=== PATIENT | male | born 1970 | race Caucasian/White ===

== ENCOUNTER 2020-02-15 03:21 | Inpatient (IN) | payer SELFPAY ==
[2020-02-15] MEDS ORDERED: ONDANSETRON HCL INJ/PF 4 MG/2 ML SDV IV ONE (03:53)
[2020-02-15] MEDS ORDERED: RINGERS SOLUTION,LACTATED 1,000 ML IV ONE ×2 (03:53→04:41)
--- NOTE | 2020-02-15 03:54 | ER Document Report ---
ED Blood Sugar Problem - General Chief Complaint: High Blood Sugar Stated Complaint: BLOOD SUGAR ISSUE Time Seen by Provider: 02/15/20 03:48 Notes: Patient is a 49-year-old male with a history of insulin-dependent diabetes that comes the emergency department for chief complaint of vomiting for the past 3 days. He comes by EMS, he states his girlfriend called EMS, EMS reported his blood sugar was reading "HI". Patient denies fevers, specific abdominal pain, chest pain, alcohol, recreational drugs. He states he is taking insulin that he is purchasing from [id number] and he does not have a primary care provider. He denies any other complaints. Only other reported medical history is hernia repair and remote history of pneumothorax. - Related Data Allergies/Adverse Reactions: No Known Allergies Allergy (Unverified 07/03/11 10:58) Past Medical History - General Information source: Patient - Social History Smoking Status: Current Every Day Smoker Frequency of alcohol use: Occasional Drug Abuse: Marijuana Lives with: Alone Family History: Reviewed & Not Pertinent Pulmonary Medical History: Denies: Hx Tuberculosis Endocrine Medical History: Reports: Hx Diabetes Mellitus Type 1 Past Surgical History: Reports: Hx Herniorrhaphy. Denies: Hx Pacemaker - Immunizations Immunizations up to date: Yes Hx Diphtheria, Pertussis, Tetanus Vaccination: Yes Review of Systems - Review of Systems Constitutional: See HPI EENT: No symptoms reported Cardiovascular: No symptoms reported Respiratory: No symptoms reported Gastrointestinal: See HPI Genitourinary: No symptoms reported Male Genitourinary: No symptoms reported Musculoskeletal: No symptoms reported Skin: No symptoms reported Hematologic/Lymphatic: No symptoms reported Neurological/Psychological: No symptoms reported Physical Exam - Vital signs Vitals: Resp BP Pulse Ox 18 156/97 H 97 02/15/20 03:23 02/15/20 03:23 02/15/20 03:23 - Notes Notes: GENERAL: Patient is alert and cooperative but he is ill-appearing HEAD: Normocephalic, atraumatic. EYES: Pupils equal, round, and reactive to light. Extraocular movements intact. ENT: Oral mucosa parched, tongue midline. Oropharynx unremarkable. Airway patent. NECK: Full range of motion. Supple. Trachea midline. No lymphadenopathy. LUNGS: Clear to auscultation bilaterally, no wheezes, rales, or rhonchi. No respiratory distress. Non-tender chest wall. Borderline tachypnea. HEART: Regular rate and rhythm. No murmur ABDOMEN: Soft, non-tender. Non-distended. EXTREMITIES: Moves all 4 extremities spontaneously. No edema, normal radial and dorsalis pedis pulses bilaterally. No cyanosis. BACK: no cervical, thoracic, lumbar midline tenderness. No saddle anesthesia, normal distal neurovascular exam. Moves all extremities in full range of motion. NEUROLOGICAL: Alert and oriented x3. Normal speech. Cranial nerves II through XII grossly intact. Strength 5/5 in all extremities. PSYCH: Slightly anxious SKIN: Pale Course - Re-evaluation Re-evalutation: Patient is ill-appearing on exam, has slight tachypnea, presentation is very suspicious for DKA. Patient will be given additional lactated Ringer's, work-up pending, placed on monitor. CBC unremarkable. Chemistry shows bicarbonate of 8, potassium of 5.9, glucose of 701, anion gap is elevated. pH on venous blood gas is 7.15. EKG shows slightly peaked T waves but QTC is unremarkable. Urinalysis shows ketones and dehydration. Work-up consistent with DKA, patient will be started on insulin drip, given additional lactated Ringer's. I discussed the patient and girlfriend at bedside. Patient has elevated LFTs but unremarkable lipase and bilirubin. He is not tender in the right upper quadrant on my exam. He denies recent travel, history of hepatitis, or known history of elevated LFTs. I discussed options and decision was made to perform hepatitis panel. Discussed admission, patient and girlfriend state agreement with plan. Discussed with Dr. Esteban. Discussed with Earnest Flannery PA-C lithography contact worker for the ICU. He did come to the emergency department, discussed patient, he has protocol with him, he feels patient does not need ICU protocol for admission, recommends hospitalist admission. Discussed with Dr. Garvin, hospitalist, patient accepted to [facility] full admission. - Vital Signs Vital signs: Temp Pulse Resp BP Pulse Ox 97.2 F 94 15 161/92 H 100 02/15/20 04:30 02/15/20 04:30 02/15/20 05:02 02/15/20 05:31 02/15/20 05:31 - Laboratory Result Diagrams: 02/15/20 03:33 02/15/20 03:33 Laboratory results interpreted by me: 02/15/20 02/15/20 02/15/20 03:33 03:33 03:33 RDW 15.7 H VBG pH 7.15 L* VBG pCO2 24.4 L VBG HCO3 8.3 L Sodium 131.5 L Potassium 5.9 H Chloride 92 L Carbon Dioxide 8 L* Anion Gap 32 H BUN 26 H Glucose 701 H* AST 513 H ALT 445 H Alkaline Phosphatase 563 H Urine Glucose (UA) Urine Ketones 02/15/20 03:33 RDW VBG pH VBG pCO2 VBG HCO3 Sodium Potassium Chloride Carbon Dioxide Anion Gap BUN Glucose AST ALT Alkaline Phosphatase Urine Glucose (UA) >=500 H Urine Ketones 80 H - EKG Interpretation by Me Additional EKG results interpreted by me: EKG shows sinus rhythm at a rate of 88, normal axis, no T wave inversions or ST segment changes in consecutive leads. QTc 431 Critical Care Note - Critical Care Note Total time excluding time spent on procedures (mins): 35 - DKA, hyperkalemia Comments: Please allow 35 minutes of critical care time for evaluation and management of this critically ill patient. Patient with significant diabetic ketoacidosis requiring lactated Ringer's, insulin drip, and multiple re-evaluations. Time spent discussing with patient and family, time spent consulting and admitting to the hospital. Discharge - Discharge Clinical Impression: Hyperkalemia Diabetic ketoacidosis Qualifiers: Diabetes mellitus type: type 1 Diabetes mellitus complication detail: without coma Qualified Code(s): E10.10 - Type 1 diabetes mellitus with ketoacidosis without coma Vomiting Qualifiers: Vomiting type: unspecified Vomiting Intractability: non-intractable Nausea presence: with nausea Qualified Code(s): R11.2 - Nausea with vomiting, unspecified Condition: Stable Disposition: ADMITTED INPATIENT Admitting Provider: Virgie (Hospitalist) Unit Admitted: [facility]
[2020-02-15 04:04] LABS: APPEARANCE,URINE CLEAR; BILIRUBIN,URINE NEGATIVE (NEGATIVE); COLOR,URINE STRAW; GLUCOSE, URINE >=500 mg/dL (NEGATIVE); KETONES,URINE 80 mg/dL (NEGATIVE); LEUKOCYTE ESTERASE,URINE NEGATIVE (NEGATIVE); NITRITE,URINE NEGATIVE (NEGATIVE); PROTEIN,URINE NEGATIVE (NEGATIVE); URINE SPECIFIC GRAVITY 1.024; UROBILINOGEN,URINE NEGATIVE mg/dL (<2.0)
[2020-02-15 04:07] LABS: VENOUS BLOOD BASE EXCESS -18.6 mmol/L; VENOUS BLOOD HCO3 8.3 mmol/L (20-32); VENOUS BLOOD PCO2 24.4 mmHg (35-63)
[2020-02-15 04:09] LABS: VENOUS BLOOD PH 7.15 (7.30-7.42)
[2020-02-15 04:12] LABS: HEMATOCRIT 46.3 % (37.9-51.0); MEAN CORPUSCULAR HEMOGLOBIN 31.2 pg (27.0-33.4); MEAN CORPUSCULAR HGB CONC 32.3 g/dL (32.0-36.0); MEAN CORPUSCULAR VOLUME 97 fl (80-97); PLATELET COUNT 428 10^3/uL (150-450); RED CELL DISTRIBUTION WIDTH 15.7 % (11.5-14.0); WHITE BLOOD COUNT 7.1 10^3/uL (4.0-10.5)
[2020-02-15 04:27] LABS: ALBUMIN 4.1 g/dL (3.5-5.0); ALKALINE PHOSPHATASE 563 U/L (38-126); ASPARTATE AMINO TRANSFERASE 513 U/L (17-59); BILIRUBIN,DIRECT 0.4 mg/dL (0.0-0.4); BILIRUBIN,TOTAL 0.7 mg/dL (0.2-1.3); BLOOD UREA NITROGEN 26 mg/dL (7-20); CALCIUM 9.6 mg/dL (8.4-10.2); CHLORIDE 92 mmol/L (98-107); POTASSIUM 5.9 mmol/L (3.6-5.0); TOTAL PROTEIN 6.7 g/dL (6.3-8.2)
[2020-02-15 04:34] LABS: ANION GAP 32 (5-19)
[2020-02-15 04:35] LABS: CARBON DIOXIDE 8 mmol/L (22-30); GLUCOSE 701 mg/dL (75-110)
[2020-02-15] MEDS ORDERED: INSULIN REG, HUMAN 100 UNIT/ML 3 ML VIAL (PYX) IV ONE (04:36)
[2020-02-15] MEDS ORDERED: LORAZEPAM INJ 2 MG/1 ML VIAL IV ONE (04:41)
[2020-02-15 04:49] LABS: ABSOLUTE LYMPHOCYTES# (MANUAL) 1.7 10^3/uL (0.5-4.7); ABSOLUTE MONOCYTES # (MANUAL) 0.4 10^3/uL (0.1-1.4); ANISOCYTOSIS 1+; BASOPHILS % (MANUAL) 0 % (0-2); EOSINOPHILS % (MANUAL) 0 % (0-6); LYMPHOCYTES % (MANUAL) 24 % (13-45); MONOCYTES % (MANUAL) 5 % (3-13); SEGMENTED NEUTROPHILS % (MAN) 71 % (42-78); TOTAL CELLS COUNTED 100
[2020-02-15 04:50] LABS: PLATELET COMMENT ADEQUATE
[2020-02-15 04:51] LABS: BURR CELLS SLIGHT; TARGET CELLS SLIGHT
[2020-02-15 04:52] LABS: SCHISTOCYTES SLIGHT
[2020-02-15] MEDS ORDERED: RINGERS SOLUTION,LACTATED 1,000 ML IV PRN ×4 (05:10→11:09)
[2020-02-15] MEDS ORDERED: MAGNESIUM HYDROXIDE SUSP 30 ML UDCUP PO PRN (06:23)
[2020-02-15] MEDS ORDERED: MAG HYDROX/AL HYDROX/SIMETH SUSP 30 ML UDCUP PO PRN (06:23)
[2020-02-15] MEDS ORDERED: ONDANSETRON HCL INJ/PF 4 MG/2 ML SDV IV PRN (06:23)
[2020-02-15] MEDS ORDERED: LEVALBUTEROL HCL NEB 0.63 MG/3 ML AMPUL NEB PRN (06:23)
[2020-02-15] MEDS ORDERED: GLUCAGON,HUMAN RECOMB 1 MG INJ IM PRN ×2 (06:28→22:00)
[2020-02-15] MEDS ORDERED: DEXTROSE 50%-WATER 25 GM/50 ML DISP.SYRIN IV PRN ×2 (06:28)
[2020-02-15] MEDS ORDERED: NORMAL SALINE 100 ML with INSULIN REGULAR, HUMAN 100 UNIT IV PRN ×2 (06:28)
[2020-02-15] MEDS ORDERED: DEXTROSE 40% GEL 15 GM TUBE PO PRN ×3 (06:28→22:00)
[2020-02-15] MEDS ORDERED: ACETAMINOPHEN 650 MG SUPP.RECT PR PRN (06:29)
[2020-02-15] MEDS ORDERED: ACETAMINOPHEN 325 MG TABLET PO PRN (06:29)
[2020-02-15] MEDS ORDERED: DEXTROSE 5%-WATER 1000 ML 1,000 ML with SODIUM BICARBONATE 150 MEQ IV PRN ×2 (06:29)
[2020-02-15] MEDS ORDERED: MORPHINE SULFATE 10 MG/ML INJ IV PRN (06:29)
[2020-02-15] MEDS ORDERED: GUAIFENESIN SYRP 200 MG/10 ML UDC PO PRN (06:29)
[2020-02-15] MEDS ORDERED: HYDRALAZINE HCL INJ/PF 20 MG/1 ML SDV IV PRN (06:29)
[2020-02-15] MEDS ORDERED: LORAZEPAM INJ 2 MG/1 ML VIAL IV PRN (06:29)
[2020-02-15] MEDS ORDERED: SODIUM BICARBONATE 8.4% INJ 50 MEQ/50 ML DISP.SYRIN ONE ×2 (07:23→07:24)
--- NOTE | 2020-02-15 08:35 | EKG REPORT ---
SEVERITY:- NORMAL ECG - SINUS RHYTHM : Confirmed by: Jaswinder Burks MD 15-Feb-2020 08:35:14
[2020-02-15 09:56] LABS: BLOOD UREA NITROGEN 25 mg/dL (7-20); CALCIUM 8.9 mg/dL (8.4-10.2); CHLORIDE 101 mmol/L (98-107)
[2020-02-15] MEDS: DOCUSATE SODIUM 100 MG CAPSULE PO SCH ×2 (10:03→17:00)
[2020-02-15 10:27] LABS: ANION GAP 27 (5-19)
[2020-02-15 10:28] LABS: GLUCOSE 471 mg/dL (75-110)
[2020-02-15 10:29] LABS: CARBON DIOXIDE 8 mmol/L (22-30)
[2020-02-15] MEDS: FAMOTIDINE INJ/PF 20 MG/2 ML SDV IV SCH ×2 (10:33→22:14)
[2020-02-15] MEDS ORDERED: NORMAL SALINE 1000 ML 1,000 ML IV PRN (10:58)
[2020-02-15] MEDS ORDERED: DEXTROSE 5%-NORMAL SALINE 1,000 ML IV PRN ×2 (12:17→18:24)
[2020-02-15 12:24] LABS: VENOUS BLOOD BASE EXCESS -6.4 mmol/L; VENOUS BLOOD HCO3 19.4 mmol/L (20-32); VENOUS BLOOD PCO2 39.5 mmHg (35-63); VENOUS BLOOD PH 7.31 (7.30-7.42)
[2020-02-15 12:39] LABS: ANION GAP 10 (5-19); BLOOD UREA NITROGEN 22 mg/dL (7-20); CALCIUM 8.2 mg/dL (8.4-10.2); CHLORIDE 104 mmol/L (98-107); GLUCOSE 192 mg/dL (75-110)
[2020-02-15 12:53] LABS: CARBON DIOXIDE 20 mmol/L (22-30)
[2020-02-15] MEDS ORDERED: INSULIN LISPRO 100 UNIT/ML 3 ML VIAL SUBCUT SCH ×2 (13:45→15:45)
[2020-02-15] MEDS ORDERED: POTASSI CL 20 MEQ/50 ML RIDER 20 MEQ/50 ML RTUPB IV SCH (14:30)
--- NOTE | 2020-02-15 15:19 | RADIOLOGY REPORT (SQ) ---
EXAM DESCRIPTION: CT HEAD WITHOUT IMAGES COMPLETED DATE/TIME: 02/15/2020 3:02 pm REASON FOR STUDY: AMS COMPARISON: CT head 04/10/2012. TECHNIQUE: Axial images acquired through the brain without intravenous contrast. Images reviewed wi th bone, brain and subdural windows. Images stored on PACS. All CT scanners at this facility use dose modulation, iterative reconstruction, and/or weight based d osing when appropriate to reduce radiation dose to as low as reasonably achievable (ALARA). [facility]: Dose Right [facility]: CareDose [facility]: Dose Right [facility]: Teradose 4D [facility]: [employer] RADIATION DOSE: CT Rad equipment meets quality standard of care and radiation dose reduction techniq ues were employed. CTDIvol: 53.2 mGy. DLP: 911 mGy-cm. mGy. LIMITATIONS: None. FINDINGS: VENTRICLES: Normal size and contour. CEREBRUM: No mass effect. No hemorrhage. No midline shift. Normal finney/white matter differentiatio n. No evidence for acute territorial infarction. CEREBELLUM: No mass effect. No hemorrhage. No alteration of density. No evidence for acute infarct ion. EXTRAAXIAL SPACES: No fluid collections. ORBITS AND GLOBE: Symmetrical contour of the globes. CALVARIUM: No depressed skull fracture. PARANASAL SINUSES: No air-fluid level. SOFT TISSUES: No hematoma. IMPRESSION: NO ACUTE INTRACRANIAL IMAGING FINDINGS. EVIDENCE OF ACUTE STROKE: NO. COMMENT: Quality ID # [id number]: Final reports with documentation of one or more dose reduction techniques (e.g., Automated exposure control, adjustment of the mA and/or kV according to patient size, use of iterative reconstruction technique) TECHNICAL DOCUMENTATION: JOB ID: [id number] [place]-[employer] 2010 [employer]- All Rights Reserved Reading location - IP/workstation name: [email or web address]
[2020-02-15] MEDS: HEPARIN SOD (PORCINE) 5,000 UNIT/ML 1 ML VIAL SUBCUT SCH ×2 (15:42→22:14)
--- NOTE | 2020-02-15 15:45 | Progress Note ---
Provider Note Provider Note: History of insulin-dependent diabetes mellitus came to the emergency room with a chief complaint of vomiting for 3 days. History derived from the ED physicians notes as he was very drowsy and sleepy when I rounded on him this morning .He states that his girlfriend called EMS EMS reported his blood sugar was reading high. She denies fever abdominal pain chest pain alcohol recreational drugs. He states that he is taking insulin that he purchased from [id number] and does not have a primary care provider. CBC was unremarkable. CMP showed a bicarbonate of 8 potassium of 5.9, glucose of 701, anion gap of 32. VBG showed a pH of 7.15. EKG shows slightly peaked T waves but QTC is unremarkable. UA showed positive ketones. He was started on an insulin drip and given pain LR. He was initially assessed by ICU physician who deemed that he was stable enough to go to the floor for treatment of DKA. Dr. Garvin admitted him. Please refer to his notes for full H&P. Was seen and examined at bedside. Noted to be very sleepy and drowsy. Pupils are 4 mm briskly reactive to light bilateral. He wakes up and opens his eyes and is able to mumble yes or no but goes back to sleep. CT head without contrast was normal. Insulin drip was stopped at around 1 PM. Anion gap closed at 1 PM. IV fluids changed from plain LR to D5 NS at 200 mL/h. Since he is still unable to eat, subcu insulin 6 units every 2 hours was started, Accu-Cheks every 2 hours. May transition to basal bolus insulin once he is able to eat. Potassium 4.0 replaced.
[2020-02-15] MEDS: POTASSI CL 20 MEQ/50 ML RIDER 20 MEQ/50 ML RTUPB IV SCH ×3 (15:52→18:53)
[2020-02-15] MEDS: INSULIN LISPRO 100 UNIT/ML 3 ML VIAL SUBCUT SCH ×5 (15:53→23:00)
[2020-02-15 15:54] LABS: URINE BARBITURATES SCREEN NEGATIVE; URINE BENZODIAZEPINES SCREEN NEGATIVE; URINE COCAINE SCREEN NEGATIVE; URINE METHADONE SCREEN NEGATIVE; URINE PHENCYCLIDINE SCREEN NEGATIVE
[2020-02-15 15:57] LABS: URINE MARIJUANA (THC) SCREEN UNCONFIRMED POSITIVE
[2020-02-15 17:20] LABS: VENOUS BLOOD BASE EXCESS -6.8 mmol/L; VENOUS BLOOD HCO3 19.8 mmol/L (20-32); VENOUS BLOOD PCO2 43.1 mmHg (35-63); VENOUS BLOOD PH 7.28 (7.30-7.42)
[2020-02-15 17:37] LABS: ANION GAP 7 (5-19); BLOOD UREA NITROGEN 19 mg/dL (7-20); CALCIUM 7.7 mg/dL (8.4-10.2); CARBON DIOXIDE 21 mmol/L (22-30); CHLORIDE 105 mmol/L (98-107); GLUCOSE 273 mg/dL (75-110); POTASSIUM 4.2 mmol/L (3.6-5.0)
[2020-02-15] MEDS ORDERED: INSULIN GLARGINE,HUM.REC.ANLOG 1,000 UNIT/10 ML VIAL (PYX) SUBCUT PRN (18:50)
[2020-02-15] MEDS ORDERED: INSULIN GLARGINE,HUM.REC.ANLOG 1,000 UNIT/10 ML VIAL SUBCUT ONE (19:00)
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
[2020-02-15 21:18] LABS: BLOOD UREA NITROGEN 19 mg/dL (7-20); CALCIUM 7.9 mg/dL (8.4-10.2); GLUCOSE 176 mg/dL (75-110); POTASSIUM 4.7 mmol/L (3.6-5.0)
[2020-02-15 21:23] LABS: ANION GAP 6 (5-19); CARBON DIOXIDE 23 mmol/L (22-30); CHLORIDE 106 mmol/L (98-107)
[2020-02-15] MEDS ORDERED: DEXTROSE 40% GEL 15 GM TUBE X 2 PO PRN (22:00)
[2020-02-15] MEDS ORDERED: DEXTROSE 50%-WATER SYRINGE 12.5 GM/25 ML DOSE IV PRN (22:00)
[2020-02-15] MEDS ORDERED: DEXTROSE 50%-WATER SYRINGE 25 GM/50 ML DOSE IV PRN (22:00)
[2020-02-16 00:48] LABS: VENOUS BLOOD BASE EXCESS -3.4 mmol/L; VENOUS BLOOD PCO2 35.9 mmHg (35-63); VENOUS BLOOD PH 7.39 (7.30-7.42)
[2020-02-16] MEDS ORDERED: INSULIN GLARGINE,HUM.REC.ANLOG 1,000 UNIT/10 ML VIAL SUBCUT SCH ×2 (06:00→22:00)
[2020-02-16] MEDS: HEPARIN SOD (PORCINE) 5,000 UNIT/ML 1 ML VIAL SUBCUT SCH ×3 (06:10→21:52)
[2020-02-16] MEDS ORDERED: INSULIN GLARGINE,HUM.REC.ANLOG 1,000 UNIT/10 ML VIAL (PYX) SUBCUT ONE (06:13)
[2020-02-16 07:13] LABS: HEMATOCRIT 37.7 % (37.9-51.0); MEAN CORPUSCULAR HGB CONC 34.4 g/dL (32.0-36.0); PLATELET COUNT 364 10^3/uL (150-450); RED BLOOD COUNT 4.19 10^6/uL (4.35-5.55); WHITE BLOOD COUNT 12.2 10^3/uL (4.0-10.5)
[2020-02-16 07:17] LABS: MEAN CORPUSCULAR VOLUME 90 fl (80-97)
[2020-02-16 07:19] LABS: VENOUS BLOOD BASE EXCESS -1.5 mmol/L; VENOUS BLOOD HCO3 24.6 mmol/L (20-32); VENOUS BLOOD PCO2 46.7 mmHg (35-63); VENOUS BLOOD PH 7.34 (7.30-7.42)
[2020-02-16 07:34] LABS: ALBUMIN 2.6 g/dL (3.5-5.0); ALKALINE PHOSPHATASE 266 U/L (38-126); AMYLASE 33 U/L (30-110); ASPARTATE AMINO TRANSFERASE 195 U/L (17-59); BILIRUBIN,DIRECT 0.3 mg/dL (0.0-0.4); BILIRUBIN,TOTAL 0.5 mg/dL (0.2-1.3); CHOLESTEROL 163.52 mg/dL (0-200); TRIGLYCERIDES 287 mg/dL (<150)
[2020-02-16 07:36] LABS: ANION GAP 6 (5-19); BLOOD UREA NITROGEN 18 mg/dL (7-20); CALCIUM 8.5 mg/dL (8.4-10.2); CARBON DIOXIDE 23 mmol/L (22-30); CHLORIDE 106 mmol/L (98-107); GLUCOSE 89 mg/dL (75-110); POTASSIUM 4.1 mmol/L (3.6-5.0)
[2020-02-16 07:45] LABS: DIRECT LDL 89 mg/dL (<100)
[2020-02-16 07:57] LABS: VLDL CHOLESTEROL 57.4 mg/dL (10-31)
[2020-02-16] MEDS: INSULIN LISPRO 100 UNIT/ML 3 ML VIAL SUBCUT SCH ×6 (08:34→21:38)
[2020-02-16] MEDS: DOCUSATE SODIUM 100 MG CAPSULE PO SCH ×2 (09:33→17:00)
[2020-02-16] MEDS: FAMOTIDINE INJ/PF 20 MG/2 ML SDV IV SCH ×2 (09:35→21:52)
--- NOTE | 2020-02-16 16:32 | PDOC PROGRESS REPORT ---
Subjective Progress Note for:: 02/16/20 Subjective:: History of insulin-dependent diabetes mellitus came to the emergency room with a chief complaint of vomiting for 3 days. History derived from the ED physicians notes as he was very drowsy and sleepy when I rounded on him this morning .He states that his girlfriend called EMS EMS reported his blood sugar was reading high. She denies fever abdominal pain chest pain alcohol recreational drugs. He states that he is taking insulin that he purchased from [employer] [id number] and does not have a primary care provider. CBC was unremarkable. CMP showed a bicarbonate of 8 potassium of 5.9, glucose of 701, anion gap of 32. VBG showed a pH of 7.15. EKG shows slightly peaked T waves but QTC is unremarkable. UA showed positive ketones. He was started on an insulin drip and given pain LR. He was initially assessed by ICU physician who deemed that he was stable enough to go to the floor for treatment of DKA. Dr. Garvin admitted him. Please refer to his notes for full H&P. Was seen and examined at bedside. Noted to be very sleepy and drowsy. Pupils are 4 mm briskly reactive to light bilateral. He wakes up and opens his eyes and is able to mumble yes or no but goes back to sleep. CT head without contrast was normal. Insulin drip was stopped at around 1 PM. Anion gap closed at 1 PM. IV fluids changed from plain LR to D5 NS at 200 mL/h. Since he is still unable to eat, subcu insulin 6 units every 2 hours was started, Accu-Cheks every 2 hours. May transition to basal bolus insulin once he is able to eat. Potassium 4.0 replaced. D2 hospital stay 02/16/2020. He was seen and examined at bedside. He is much more alert and awake today, able to eat. He denies any abdominal pain, nausea/vomiting. He told me that he has not seen a doctor for atleast a year. He uses 70/30 at home 20 u am, 10 u at night. His usual BG pre breakfast is 300- 400. DKA has resolved and he was transitioned to basal bolus based on his Total insulin dose yesterday. Reason For Visit: DIABETIC KETOACIDOSIS TYPE I WITHOUT COMA Physical Exam Vital Signs: Temp Pulse Resp BP Pulse Ox 97.7 F 74 16 108/66 100 09/07/20 11:56 02/16/20 11:56 02/16/20 11:56 02/16/20 11:56 02/16/20 11:56 Intake & Output 02/15/20 02/16/20 02/17/20 06:59 06:59 06:59 Intake Total 1999 5176 1780 Output Total 1000 600 Balance 1999 4176 1180 Weight 61.9 kg 65.4 kg General appearance: PRESENT: no acute distress, cooperative Head exam: PRESENT: atraumatic, normocephalic Eye exam: PRESENT: EOMI, PERRLA Mouth exam: PRESENT: moist Neck exam: PRESENT: full ROM Respiratory exam: PRESENT: clear to auscultation daniel, symmetrical, unlabored. ABSENT: rales Cardiovascular exam: PRESENT: RRR, +S1, +S2 Pulses: PRESENT: +2 pedal pulses bilateral GI/Abdominal exam: PRESENT: normal bowel sounds, soft. ABSENT: rebound, tenderness Musculoskeletal exam: PRESENT: full ROM Neurological exam: PRESENT: alert, awake, oriented to person, oriented to place, oriented to time, oriented to situation Psychiatric exam: PRESENT: normal mood Skin exam: PRESENT: normal color Results Laboratory Results: 02/16/20 06:40 02/16/20 06:40 02/15/20 02/15/20 02/15/20 17:02 17:02 20:40 WBC RBC Hgb Hct MCV MCH MCHC RDW Plt Count VBG pH 7.28 L VBG pCO2 43.1 VBG HCO3 19.8 L VBG Base Excess -6.8 Sodium 132.7 L 134.9 L Potassium 4.2 4.7 Chloride 105 106 Carbon Dioxide 21 L 23 Anion Gap 7 6 BUN 19 19 Creatinine 0.57 0.53 Est GFR ( Amer) > 60 > 60 Glucose 273 H 176 H Calcium 7.7 L 7.9 L Magnesium Total Bilirubin AST Alkaline Phosphatase Total Protein Albumin Triglycerides Cholesterol LDL Cholesterol Direct VLDL Cholesterol HDL Cholesterol Amylase Lipase TSH 02/16/20 02/16/20 02/16/20 00:40 06:40 06:40 WBC 12.2 H RBC 4.19 L Hgb 13.0 L Hct 37.7 L MCV 90 D MCH 31.0 MCHC 34.4 RDW 15.0 H Plt Count 364 VBG pH 7.39 VBG pCO2 35.9 VBG HCO3 21.0 VBG Base Excess -3.4 Sodium Potassium Chloride Carbon Dioxide Anion Gap BUN Creatinine Est GFR ( Amer) Glucose Calcium Magnesium 2.1 Total Bilirubin 0.5 AST 195 H Alkaline Phosphatase 266 H Total Protein 5.0 L Albumin 2.6 L Triglycerides 287 H Cholesterol 163.52 LDL Cholesterol Direct 89 VLDL Cholesterol 57.4 H HDL Cholesterol 51 Amylase 33 Lipase 86.8 TSH 02/16/20 02/16/20 02/16/20 06:40 06:40 06:40 WBC RBC Hgb Hct MCV MCH MCHC RDW Plt Count VBG pH 7.34 VBG pCO2 46.7 VBG HCO3 24.6 VBG Base Excess -1.5 Sodium 134.6 L Potassium 4.1 Chloride 106 Carbon Dioxide 23 Anion Gap 6 BUN 18 Creatinine 0.58 Est GFR ( Amer) > 60 Glucose 89 Calcium 8.5 Magnesium Total Bilirubin AST Alkaline Phosphatase Total Protein Albumin Triglycerides Cholesterol LDL Cholesterol Direct VLDL Cholesterol HDL Cholesterol Amylase Lipase TSH 2.59 Impressions: Head CT 02/15/20 00:00 IMPRESSION: NO ACUTE INTRACRANIAL IMAGING FINDINGS. EVIDENCE OF ACUTE STROKE: NO. Assessment and Plan - Diagnosis (1) Diabetic ketoacidosis Qualifiers: Diabetes mellitus type: type 1 Diabetes mellitus complication detail: without coma Qualified Code(s): E10.10 - Type 1 diabetes mellitus with ketoacidosis without coma Is this a current diagnosis for this admission?: Yes Plan: -resolved. AG closed - transitioned to basal bolus - K 4.7 - adequate hydration. Able to eat - Accucheck ACHS - hypoglycemia protocol (2) Diabetes mellitus Qualifiers: Diabetes mellitus type: type 2 Diabetes mellitus oil heaterman insulin use: with oil heaterman use Diabetes mellitus complication status: with ketoacidosis Diabetes mellitus complication detail: without coma Qualified Code(s): E11.10 - Type 2 diabetes mellitus with ketoacidosis without coma; Z79.4 - care home (current) use of insulin Is this a current diagnosis for this admission?: Yes Plan: - On insulin 70/30 at home 30 u am, 10 u pm - per patient BG at home prebreakfast usually 300-400 - has not seen a doctor in 1 year - awaiting A1C - on basal bolus insulin - unsure if he ever had an eye exam to screen for DM retinopathy - needs a PCP (3) Hyperkalemia Is this a current diagnosis for this admission?: Yes Plan: - RESOLVED. - likely due to DKA K 5.9>4.7 - mild peaking of T waves on admission - received bicarb drip for a few hours (4) Increased anion gap metabolic acidosis Is this a current diagnosis for this admission?: Yes Plan: - RESOLVED - AG 32>27>10>6 - 2/2 DKA - Plan Summary Summary: Patient was admitted due to DKA which has since resolved. He is currently on a basal bolus insulin regimen which was started today. If blood glucose control is acceptable by tomorrow he can go home on basal bolus regimen or an increase of his insulin 70/30. Needs to be set up with a primary care physician to follow his diabetes management - Time Time Spent with patient: 25-34 minutes Anticipated Discharge Disposition: Home, Self Care Anticipated Discharge Timeframe: within 48 hours
[2020-02-17] MEDS: HEPARIN SOD (PORCINE) 5,000 UNIT/ML 1 ML VIAL SUBCUT SCH ×3 (06:18→21:48)
[2020-02-17] MEDS: INSULIN LISPRO 100 UNIT/ML 3 ML VIAL SUBCUT SCH ×7 (07:46→21:45)
[2020-02-17] MEDS: DOCUSATE SODIUM 100 MG CAPSULE PO SCH ×2 (09:07→17:16)
[2020-02-17] MEDS: ASPIRIN 81 MG TABLET, CHEWABLE PO SCH (09:08)
[2020-02-17] MEDS: LISINOPRIL 10 MG TABLET PO SCH (09:08)
[2020-02-17 10:36] LABS: HEPATITS B SURFACE ANTIGEN Negative (Negative)
[2020-02-17 10:57] LABS: HEPATITIS C VIRUS ANTIBODY <0.1 s/co ratio (0.0-0.9)
[2020-02-17 11:32] LABS: ABSOLUTE BASOPHILS # (AUTO) 0.1 10^3/uL (0.0-0.2); ABSOLUTE LYMPHOCYTES (AUTO) 1.6 10^3/uL (0.5-4.7); ABSOLUTE MONOCYTES (AUTO) 0.4 10^3/uL (0.1-1.4); ABSOLUTE NEUT (AUTO) 3.9 10^3/uL (1.7-8.2); BASOPHILS % (AUTO) 1.1 % (0-2); EOSINOPHILS % (AUTO) 0.5 % (0-6); HEMATOCRIT 33.3 % (37.9-51.0); HEMOGLOBIN 11.8 g/dL (13.5-17.0); MEAN CORPUSCULAR HEMOGLOBIN 31.5 pg (27.0-33.4); MEAN CORPUSCULAR HGB CONC 35.4 g/dL (32.0-36.0); MEAN CORPUSCULAR VOLUME 89 fl (80-97); MONOCYTES % (AUTO) 7.2 % (3-13); PLATELET COUNT 298 10^3/uL (150-450); RED BLOOD COUNT 3.74 10^6/uL (4.35-5.55); RED CELL DISTRIBUTION WIDTH 15.1 % (11.5-14.0); SEGMENTED NEUTROPHILS % (AUTO) 64.2 % (42-78); TOTAL CELLS COUNTED % (AUTO) 100 %
[2020-02-17 11:50] LABS: ALBUMIN 2.5 g/dL (3.5-5.0); ALKALINE PHOSPHATASE 226 U/L (38-126); ANION GAP 8 (5-19); ASPARTATE AMINO TRANSFERASE 196 U/L (17-59); BILIRUBIN,DIRECT 0.3 mg/dL (0.0-0.4); BILIRUBIN,TOTAL 0.4 mg/dL (0.2-1.3); BLOOD UREA NITROGEN 16 mg/dL (7-20); CARBON DIOXIDE 23 mmol/L (22-30); CHLORIDE 98 mmol/L (98-107); GLUCOSE 261 mg/dL (75-110); POTASSIUM 4.5 mmol/L (3.6-5.0); TOTAL PROTEIN 4.9 g/dL (6.3-8.2)
--- NOTE | 2020-02-17 14:12 | PDOC PROGRESS REPORT ---
Subjective Progress Note for:: 02/17/20 Subjective:: 49 year old male who presented to the emergency room via EMS with a 3-day history of hyperglycemia. He admits nausea and vomiting for the last 3 days with persistent hyperglycemia that he has been unable to control with his insulin. He acknowledges a history of type 1 diabetes mellitus and admits numerous prior similar episodes with DKA. He denies other associated or accompanying signs and symptoms. He has not identified any additional factors to aggravate or ameliorate his hyperglycemia. In the emergency room he was found to have a blood sugar greater than 700 a pH of 7.15 and anion gap of 32 and a bicarbonate of 8. He was subsequently admitted to the hospital for further evaluation and treatment on IMCU. 02/16/2020. He was seen and examined at bedside. He is much more alert and awake today, able to eat. He denies any abdominal pain, nausea/vomiting. He told me that he has not seen a doctor for atleast a year. He uses 70/30 at home 20 u am, 10 u at night. His usual BG pre breakfast is 300-400. DKA has resolved and he was transitioned to basal bolus based on his Total insulin dose yesterday. 02/17/2020-patient is comfortably in the bed communicating well expressing desire to go home today. This morning blood sugar is 81. Plan is to adjust his insulin today and plan is to discharge him tomorrow. Patient agreed with the plan. Reason For Visit: DIABETIC KETOACIDOSIS TYPE I WITHOUT COMA Physical Exam Vital Signs: Temp Pulse Resp BP Pulse Ox 97.2 F 89 16 100/60 98 02/17/20 11:27 02/17/20 14:00 02/17/20 11:27 02/17/20 11:27 02/17/20 11:27 Intake & Output 02/16/20 02/17/20 02/18/20 06:59 06:59 06:59 Intake Total 5176 2507 Output Total 1000 1270 Balance 4176 1237 Weight 65.4 kg 67 kg 67 kg General appearance: PRESENT: no acute distress, well-developed Head exam: PRESENT: atraumatic Eye exam: PRESENT: PERRLA Mouth exam: PRESENT: moist, tongue midline Teeth exam: PRESENT: poor dentation Neck exam: ABSENT: carotid bruit, JVD, lymphadenopathy, thyromegaly Respiratory exam: PRESENT: decreased breath sounds Cardiovascular exam: PRESENT: RRR. ABSENT: diastolic murmur, rubs, systolic murmur Pulses: PRESENT: normal dorsalis pedis pul Rectal exam: PRESENT: deferred Extremities exam: PRESENT: full ROM. ABSENT: calf tenderness, clubbing, pedal edema Neurological exam: PRESENT: alert, awake, oriented to person, oriented to place, oriented to time, oriented to situation, CN II-XII grossly intact. ABSENT: motor sensory deficit Psychiatric exam: PRESENT: appropriate affect, normal mood. ABSENT: homicidal ideation, suicidal ideation Results Laboratory Results: 02/17/20 11:18 02/17/20 11:18 02/17/20 02/17/20 11:18 11:18 WBC 6.0 RBC 3.74 L Hgb 11.8 L Hct 33.3 L MCV 89 MCH 31.5 MCHC 35.4 RDW 15.1 H Plt Count 298 Seg Neutrophils % 64.2 Sodium 129.4 L Potassium 4.5 Chloride 98 Carbon Dioxide 23 Anion Gap 8 BUN 16 Creatinine 0.48 L Est GFR ( Amer) > 60 Glucose 261 H Calcium 8.0 L Magnesium 1.8 Total Bilirubin 0.4 AST 196 H Alkaline Phosphatase 226 H Total Protein 4.9 L Albumin 2.5 L Impressions: Head CT 02/15/20 00:00 IMPRESSION: NO ACUTE INTRACRANIAL IMAGING FINDINGS. EVIDENCE OF ACUTE STROKE: NO. Assessment and Plan - Diagnosis (1) Diabetic ketoacidosis Qualifiers: Diabetes mellitus type: type 1 Diabetes mellitus complication detail: without coma Qualified Code(s): E10.10 - Type 1 diabetes mellitus with ketoacidosis without coma Is this a current diagnosis for this admission?: Yes Plan: -resolved. AG closed - transitioned to basal bolus - K 4.7 - adequate hydration. Able to eat - Accucheck ACHS - hypoglycemia protocol 02/17/2020-this morning blood sugar is 81. Plan is to adjust his insulin requirements. Most likely to discharge him home on insulin with a detailed instructions. Dietary consult was provided during the hospital stay. (2) Diabetes mellitus Qualifiers: Diabetes mellitus type: type 2 Diabetes mellitus residential insulin use: with residential use Diabetes mellitus complication status: with ketoacidosis Diabetes mellitus complication detail: without coma Qualified Code(s): E11.10 - Type 2 diabetes mellitus with ketoacidosis without coma; Z79.4 - rn long term care (current) use of insulin Is this a current diagnosis for this admission?: No Plan: - On insulin 70/30 at home 30 u am, 10 u pm - per patient BG at home prebreakfast usually 300-400 - has not seen a doctor in 1 year - awaiting A1C - on basal bolus insulin - unsure if he ever had an eye exam to screen for DM retinopathy - needs a PCP 02/17/2020-hemoglobin A1c is more than 14. Patient needs to establish with a PCP to close monitor the blood sugars and compliance with medications. Unfortunately does not have any insurance. He goes to [facility] usually to get insulin at low cost on an infrequent basis. Patient will be referred to [facility]. (3) Tobacco use disorder, continuous Is this a current diagnosis for this admission?: No Plan: 02/17/2020-patient is a chronic daily day smoker smoking consult was put for more than 20 minutes. Offered nicotine patches. (4) Hyponatremia Is this a current diagnosis for this admission?: Yes Plan: 02/17/2020-serum sodium is 129.4. Blood sugar is 240. Corrected serum sodium is around 131. Plan is to closely monitor the serum sodium levels. (5) Hyperkalemia Is this a current diagnosis for this admission?: Yes Plan: - RESOLVED. - likely due to DKA K 5.9>4.7 - mild peaking of T waves on admission - received bicarb drip for a few hours 02/17/2020-serum potassium is 4.5 and hyperkalemia is resolved. - Plan Summary Summary: Patient was admitted due to DKA which has since resolved. He is currently on a basal bolus insulin regimen which was started today. If blood glucose control is acceptable by tomorrow he can go home on basal bolus regimen or an increase of his insulin 70/30. Needs to be set up with a primary care physician to follow his diabetes management - Time Anticipated Discharge Disposition: Home, Self Care Anticipated Discharge Timeframe: within 48 hours
[2020-02-17] MEDS: PANTOPRAZOLE SODIUM 40 MG TABLET.DR PO SCH (17:16)
[2020-02-17] MEDS ORDERED: ATORVASTATIN CALCIUM 20 MG TABLET PO SCH (22:00)
[2020-02-17] MEDS ORDERED: INSULIN GLARGINE,HUM.REC.ANLOG 1,000 UNIT/10 ML VIAL SUBCUT SCH (22:00)
[2020-02-18] MEDS: PANTOPRAZOLE SODIUM 40 MG TABLET.DR PO SCH (06:52)
[2020-02-18] MEDS: HEPARIN SOD (PORCINE) 5,000 UNIT/ML 1 ML VIAL SUBCUT SCH (06:52)
[2020-02-18] MEDS: INSULIN LISPRO 100 UNIT/ML 3 ML VIAL SUBCUT SCH ×2 (08:04→12:06)
[2020-02-18] MEDS: DOCUSATE SODIUM 100 MG CAPSULE PO SCH (09:28)
[2020-02-18] MEDS: ASPIRIN 81 MG TABLET, CHEWABLE PO SCH (09:31)
[2020-02-18] MEDS: LISINOPRIL 10 MG TABLET PO SCH (09:31)
[2020-02-18] MEDS ORDERED: INSULIN LISPRO 100 UNIT/ML 3 ML VIAL SUBCUT SCH (11:00)
[2020-02-18 12:04] VITALS: BP 156/97
--- NOTE | 2020-02-18 17:01 | PDOC DISCHARGE SUMMARY ---
Impression - Admit/DC Date/PCP Admission Date/Primary Care Provider: 02/15/20 06:28 Discharge Date: 02/18/20 - Discharge Diagnosis (1) Diabetic ketoacidosis Is this a current diagnosis for this admission?: Yes (2) Diabetes mellitus Is this a current diagnosis for this admission?: No (3) Tobacco use disorder, continuous Is this a current diagnosis for this admission?: No (4) Hyponatremia Is this a current diagnosis for this admission?: Yes (5) Hyperkalemia Is this a current diagnosis for this admission?: Yes - Assessment Summary: (1) Diabetic ketoacidosis Qualifiers: Diabetes mellitus type: type 1 Diabetes mellitus complication detail: without coma Qualified Code(s): E10.10 - Type 1 diabetes mellitus with ke toacidosis without coma Is this a current diagnosis for this admission?: Yes Plan: -resolved. AG closed - transitioned to basal bolus - K 4.7 - adequate hydration. Able to eat - Accucheck ACHS - hypoglycemia protocol 02/17/2020-this morning blood sugar is 81. Plan is to adjust his insulin requirements. Most likely to discharge him home on insulin with a detailed instructions. Dietary consult was provided during the hospital stay. 02/18/2020-this morning blood sugar is around 58. Asymptomatic. Patient was given prescriptions for Lantus insulin sliding scale coverage, aspirin, atorvastatin, lisinopril. (2) Diabetes mellitus Qualifiers: Diabetes mellitus type: type 2 Diabetes mellitus halfway insulin use: with skatesman use Diabetes mellitus complication status: with ketoacidosis Diabetes mellitus complication detail: without coma Qualified Code(s): E11.10 - Type 2 diabetes mellitus with ketoacidosis without coma; Z79.4 - retirement (current) use of insulin Is this a current diagnosis for this admission?: No Plan: - On insulin 70/30 at home 30 u am, 10 u pm - per patient BG at home prebreakfast usually 300-400 - has not seen a doctor in 1 year - awaiting A1C - on basal bolus insulin - unsure if he ever had an eye exam to screen for DM retinopathy - needs a PCP 02/17/2020-hemoglobin A1c is more than 14. Patient needs to establish with a PCP to close monitor the blood sugars and compliance with medications. Unfortunately does not have any insurance. He goes to [facility] usually to get insulin at low cost on an infrequent basis. Patient will be referred to community care clinic. 02/18/2020-hemoglobin A1c is more than 14. Compliance with medication is advised. Prescriptions were given. (3) Tobacco use disorder, continuous Is this a current diagnosis for this admission?: No Plan: 02/17/2020-patient is a chronic daily day smoker smoking consult was put for more than 20 minutes. Offered nicotine patches. (4) Hyponatremia Is this a current diagnosis for this admission?: Yes Plan: 02/17/2020-serum sodium is 129.4. Blood sugar is 240. Corrected serum sodium is around 131. Plan is to closely monitor the serum sodium levels. 02/18/2020-hyponatremia is resolved. (5) Hyperkalemia Is this a current diagnosis for this admission?: Yes Plan: - RESOLVED. - likely due to DKA K 5.9>4.7 - mild peaking of T waves on admission - received bicarb drip for a few hours 02/17/2020-serum potassium is 4.5 and hyperkalemia is resolved. - Plan Summary Summary: Patient was admitted due to DKA which has since resolved. He is currently on a basal bolus insulin regimen which was started today. If blood glucose control is acceptable by tomorrow he can go home on basal bolus regimen or an increase of his insulin 70/30. Needs to be set up with a primary care physician to follow his diabetes management - Time Anticipated Discharge Disposition: Home, Self Care Anticipated Discharge Timeframe: within 48 hours - Additional Information Resuscitation Status: Full Code Discharge Diet: Diabetic Discharge Activity: Activity As Tolerated Referrals: [facility] [Outside] - 02/28/20 11:00 am Prescriptions: Aspirin [Aspirin 81 mg Chewable Tablet] 81 mg PO DAILY 30 Days #30 tab.chew Insulin Lispro [Humalog Insulin (Lispro) 100 unit/mL] 0 - 12 unit SUBCUT ACHS #1 vial Insulin Lispro [Humalog Insulin (Lispro) 100 unit/mL] 10 unit SUBCUT AC 30 Days #1 vial Insulin Glargine,Hum.rec.anlog [Lantus Insulin 100 Unit/1 ml 10 ml] 20 unit SUBCUT QHS 30 Days #2 vial Atorvastatin Calcium [Lipitor 20 mg Tablet] 20 mg PO QHS 30 Days #30 tablet Lisinopril [Prinivil 10 mg Tablet] 10 mg PO DAILY 30 Days #30 tablet Home Medications: Aspirin [Aspirin 81 mg Chewable Tablet] 81 mg PO DAILY 30 Days #30 tab.chew 02/18/20 Atorvastatin Calcium [Lipitor 20 mg Tablet] 20 mg PO QHS 30 Days #30 tablet 02/18/20 Insulin Glargine,Hum.rec.anlog [Lantus Insulin 100 Unit/1 ml 10 ml] 20 unit SUBCUT QHS 30 Days #2 vial 02/18/20 Insulin Lispro [Humalog Insulin (Lispro) 100 unit/mL] 0 - 12 unit SUBCUT ACHS #1 vial 02/18/20 Insulin Lispro [Humalog Insulin (Lispro) 100 unit/mL] 10 unit SUBCUT AC 30 Days #1 vial 02/18/20 Lisinopril [Prinivil 10 mg Tablet] 10 mg PO DAILY 30 Days #30 tablet 02/18/20 History of Present Illiness History of Present Illness: ROMEL NINO is a 49 year old male 49 year old male who presented to the emergency room via EMS with a 3-day history of hyperglycemia. He admits nausea and vomiting for the last 3 days with persistent hyperglycemia that he has been unable to control with his insulin. He acknowledges a history of type 1 diabetes mellitus and admits numerous prior similar episodes with DKA. He denies other associated or accompanying signs and symptoms. He has not identified any additional factors to aggravate or ameliorate his hyperglycemia. In the emergency room he was found to have a blood sugar greater than 700 a pH of 7.15 and anion gap of 32 and a bicarbonate of 8. He was subsequently admitted to the hospital for further evaluation and treatment on IMCU. Hospital Course Hospital Course: 49 year old male who presented to the emergency room via EMS with a 3-day history of hyperglycemia. He admits nausea and vomiting for the last 3 days with persistent hyperglycemia that he has been unable to control with his insulin. He acknowledges a history of type 1 diabetes mellitus and admits numerous prior similar episodes with DKA. He denies other associated or accompanying signs and symptoms. He has not identified any additional factors to aggravate or ameliorate his hyperglycemia. In the emergency room he was found to have a blood sugar greater than 700 a pH of 7.15 and anion gap of 32 and a bicarbonate of 8. He was subsequently admitted to the hospital for further evaluation and treatment on IMCU. 02/16/2020. He was seen and examined at bedside. He is much more alert and awake today, able to eat. He denies any abdominal pain, nausea/vomiting. He told me that he has not seen a doctor for atleast a year. He uses 70/30 at home 20 u am, 10 u at night. His usual BG pre breakfast is 300-400. DKA has resolved and he was transitioned to basal bolus based on his Total insulin dose yesterday. 02/17/2020-patient is comfortably in the bed communicating well expressing desire to go home today. This morning blood sugar is 81. Plan is to adjust his insulin today and plan is to discharge him tomorrow. Patient agreed with the plan. 02/18/2020-patient admitted with uncontrolled diabetes mellitus with admission blood sugars are more than 700 with pH of 7.15 and anion gap of 32 with backup of 8. Initially on insulin drip now on Lantus and insulin sliding scale. Blood sugars are better controlled at this time. Patient is expressing desire to go home today. Given a prescription for Lantus, insulin sliding scale coverage, aspirin, atorvastatin, lisinopril at this time. Patient is advised to follow-up with community care clinic next week. Physical Exam Vital Signs: Temp Pulse Resp BP Pulse Ox 97.7 F 77 18 156/97 H 100 02/18/20 12:01 02/18/20 12:01 02/18/20 12:01 02/18/20 12:01 02/18/20 12:01 Intake & Output 02/17/20 02/18/20 02/19/20 06:59 06:59 06:59 Intake Total 2507 2883 Output Total 1270 1905 Balance 1237 978 Weight 67 kg 67.6 kg General appearance: PRESENT: no acute distress, cooperative, well-developed Head exam: PRESENT: atraumatic Eye exam: PRESENT: PERRLA Mouth exam: PRESENT: moist, tongue midline Neck exam: ABSENT: carotid bruit, JVD, lymphadenopathy, thyromegaly Respiratory exam: PRESENT: decreased breath sounds Cardiovascular exam: PRESENT: RRR. ABSENT: diastolic murmur, rubs, systolic murmur GI/Abdominal exam: PRESENT: normal bowel sounds, soft. ABSENT: distended, guarding, mass, organolmegaly, rebound, tenderness Rectal exam: PRESENT: deferred Extremities exam: PRESENT: full ROM. ABSENT: calf tenderness, clubbing, pedal edema Neurological exam: PRESENT: alert, awake, oriented to person, oriented to place, oriented to time, oriented to situation, CN II-XII grossly intact. ABSENT: motor sensory deficit Psychiatric exam: PRESENT: appropriate affect, normal mood. ABSENT: homicidal ideation, suicidal ideation Results Laboratory Results: WBC 6.0 10^3/uL (4.0-10.5) 02/17/20 11:18 RBC 3.74 10^6/uL (4.35-5.55) L 02/17/20 11:18 Hgb 11.8 g/dL (13.5-17.0) L 02/17/20 11:18 Hct 33.3 % (37.9-51.0) L 02/17/20 11:18 MCV 89 fl (80-97) 02/17/20 11:18 MCH 31.5 pg (27.0-33.4) 02/17/20 11:18 MCHC 35.4 g/dL (32.0-36.0) 02/17/20 11:18 RDW 15.1 % (11.5-14.0) H 02/17/20 11:18 Plt Count 298 10^3/uL (150-450) 02/17/20 11:18 Lymph % (Auto) 27.0 % (13-45) 02/17/20 11:18 [place] % (Auto) 7.2 % (3-13) 02/17/20 11:18 Eos % (Auto) 0.5 % (0-6) 02/17/20 11:18 Baso % (Auto) 1.1 % (0-2) 02/17/20 11:18 Absolute Neuts (auto) 3.9 10^3/uL (1.7-8.2) 02/17/20 11:18 Absolute Lymphs (auto) 1.6 10^3/uL (0.5-4.7) 02/17/20 11:18 Absolute Monos (auto) 0.4 10^3/uL (0.1-1.4) 02/17/20 11:18 Absolute Eos (auto) 0.0 10^3/uL (0.0-0.6) 02/17/20 11:18 Absolute Basos (auto) 0.1 10^3/uL (0.0-0.2) 02/17/20 11:18 Total Counted 100 02/15/20 03:33 Seg Neutrophils % 64.2 % (42-78) 02/17/20 11:18 Seg Neuts % (Manual) 71 % (42-78) 02/15/20 03:33 Lymphocytes % (Manual) 24 % (13-45) 02/15/20 03:33 Monocytes % (Manual) 5 % (3-13) 02/15/20 03:33 Eosinophils % (Manual) 0 % (0-6) 02/15/20 03:33 Basophils % (Manual) 0 % (0-2) 02/15/20 03:33 Abs Neuts (Manual) 5.0 10^3/uL (1.7-8.2) 02/15/20 03:33 Abs Lymphs (Manual) 1.7 10^3/uL (0.5-4.7) 02/15/20 03:33 Abs Monocytes (Manual) 0.4 10^3/uL (0.1-1.4) 02/15/20 03:33 Absolute Eos (Manual) 0.0 10^3/uL (0.0-0.6) 02/15/20 03:33 Abs Basophils (Manual) 0.0 10^3/uL (0.0-0.2) 02/15/20 03:33 Platelet Comment ADEQUATE 02/15/20 03:33 Anisocytosis 1+ 02/15/20 03:33 Target Cells SLIGHT 02/15/20 03:33 Rahel Cells SLIGHT 02/15/20 03:33 Schistocytes SLIGHT 02/15/20 03:33 VBG pH 7.34 (7.30-7.42) 02/16/20 06:40 VBG pCO2 46.7 mmHg (35-63) 02/16/20 06:40 VBG HCO3 24.6 mmol/L (20-32) 02/16/20 06:40 VBG Base Excess -1.5 mmol/L 02/16/20 06:40 Sodium 129.4 mmol/L (137-145) L 02/17/20 11:18 Potassium 4.5 mmol/L (3.6-5.0) 02/17/20 11:18 Chloride 98 mmol/L (98-107) 02/17/20 11:18 Carbon Dioxide 23 mmol/L (22-30) 02/17/20 11:18 Anion Gap 8 (5-19) 02/17/20 11:18 BUN 16 mg/dL (7-20) 02/17/20 11:18 Creatinine 0.48 mg/dL (0.52-1.25) L 02/17/20 11:18 Est GFR ( Amer) > 60 (>60) 02/17/20 11:18 Est GFR (MDRD) Non-Af > 60 (>60) 02/17/20 11:18 Glucose 261 mg/dL (75-110) H 02/17/20 11:18 POC Glucose 202 mg/dL (70-110) H 02/18/20 11:43 Hemoglobin A1c % > 14.0 % (4.7-6.0) H 02/16/20 06:40 Calcium 8.0 mg/dL (8.4-10.2) L 02/17/20 11:18 Magnesium 1.8 mg/dL (1.6-2.3) 02/17/20 11:18 Total Bilirubin 0.4 mg/dL (0.2-1.3) 02/17/20 11:18 Direct Bilirubin 0.3 mg/dL (0.0-0.4) 02/17/20 11:18 Neonat Total Bilirubin Not Reportable 02/17/20 11:18 Neonat Direct Bilirubin Not Reportable 02/17/20 11:18 Neonat Indirect Bili Not Reportable 02/17/20 11:18 AST 196 U/L (17-59) H 02/17/20 11:18 ALT 181 U/L (<50) H 02/17/20 11:18 Alkaline Phosphatase 226 U/L (38-126) H 02/17/20 11:18 Total Protein 4.9 g/dL (6.3-8.2) L 02/17/20 11:18 Albumin 2.5 g/dL (3.5-5.0) L 02/17/20 11:18 Triglycerides 287 mg/dL (<150) H 02/16/20 06:40 Cholesterol 163.52 mg/dL (0-200) 02/16/20 06:40 LDL Cholesterol Direct 89 mg/dL (<100) 02/16/20 06:40 VLDL Cholesterol 57.4 mg/dL (10-31) H 02/16/20 06:40 HDL Cholesterol 51 mg/dL (>40) 02/16/20 06:40 Amylase 33 U/L (30-110) 02/16/20 06:40 Lipase 86.8 U/L (23-300) 02/16/20 06:40 TSH 2.59 uIU/mL (0.47-4.68) 02/16/20 06:40 Urine Color STRAW 02/15/20 03:33 Urine Appearance CLEAR 02/15/20 03:33 Urine pH 5.0 (5.0-9.0) 02/15/20 03:33 Ur Specific [place] 1.024 02/15/20 03:33 Urine Protein NEGATIVE mg/dL (NEGATIVE) 02/15/20 03:33 Urine Glucose (UA) >=500 mg/dL (NEGATIVE) H 02/15/20 03:33 Urine Ketones 80 mg/dL (NEGATIVE) H 02/15/20 03:33 Urine Blood NEGATIVE (NEGATIVE) 02/15/20 03:33 Urine Nitrite NEGATIVE (NEGATIVE) 02/15/20 03:33 Urine Bilirubin NEGATIVE (NEGATIVE) 02/15/20 03:33 Urine Urobilinogen NEGATIVE mg/dL (<2.0) 02/15/20 03:33 Ur Leukocyte Esterase NEGATIVE (NEGATIVE) 02/15/20 03:33 Urine Mucus (Auto) RARE /LPF 02/15/20 03:33 Urine Ascorbic Acid NEGATIVE (NEGATIVE) 02/15/20 03:33 Urine Opiates Screen NEGATIVE 02/15/20 15:25 Urine Methadone Screen NEGATIVE 02/15/20 15:25 Ur Barbiturates Screen NEGATIVE 02/15/20 15:25 Ur Phencyclidine Scrn NEGATIVE 02/15/20 15:25 Ur Amphetamines Screen 02/15/20 15:25 U Benzodiazepines Scrn NEGATIVE 02/15/20 15:25 Urine Cocaine Screen NEGATIVE 02/15/20 15:25 U Marijuana (THC) Screen UNCONFIRMED POSITIVE 02/15/20 15:25 Hepatitis A IgM Ab Negative (Negative) 02/15/20 03:33 Hep Bs Antigen Negative (Negative) 02/15/20 03:33 Hep B Core IgM Ab Negative (Negative) 02/15/20 03:33 Hepatitis C Antibody <0.1 s/co ratio (0.0-0.9) 02/15/20 03:33 Impressions: Head CT 02/15/20 00:00 IMPRESSION: NO ACUTE INTRACRANIAL IMAGING FINDINGS. EVIDENCE OF ACUTE STROKE: NO. Plan Time Spent: Greater than 30 Minutes Stroke Is this a Stroke Patient?: No Acute Heart Failure Is this a Heart Failure Patient?: No
== END 2020-02-18 12:25 | disposition home or self-care (01) | DRG 638 ==
LOC: ER 03:21 → EH 06:28 → 3S 08:51
PROVIDERS: ADMIT Emergency Medicine; ATTEND Internal Medicine
DX: E10.10 Type 1 diabetes mellitus with ketoacidosis without coma (principal); E87.1 Hypo-osmolality and hyponatremia; E87.2 Acidosis; E87.5 Hyperkalemia; R03.0 Elevated blood-pressure reading, without diagnosis of hypertension; F41.9 Anxiety disorder, unspecified; F17.210 Nicotine dependence, cigarettes, uncomplicated; R11.2 Nausea with vomiting, unspecified; Z60.2 Problems related to living alone; Z79.82 Long term (current) use of aspirin; Z79.4 Long term (current) use of insulin; Z79.899 Other long term (current) drug therapy
CPT/HCPCS: 36415; 70450; 80048; 80053; 80061; 80074; 80076; 80307; 81001; 82150; 82803; 82962; 83036; 83690; 83735; 84443; 85025; 85027; 93005; 93010; 96361; 96374; 96375; 99285; J1644; J1815; J2060; J2405; J3480; J3490; J7030; J7042; J7050; J7060; J7120; S0028